=== PATIENT | male | born 1990 | race Caucasian/White ===

== ENCOUNTER 2017-02-23 21:10 | Emergency (ER) | payer SELFPAY ==
[~2017-02-23] VITALS: Ht 188 cm; Wt 71.4 kg
[2017-02-23 21:34] VITALS: BP 121/71; PULSE 81; RESP 16; TEMP 98.6; O2SAT 98
--- NOTE | 2017-02-23 23:01 | PD ---
HPI Chief Complaint: Chest Pain Time Seen by Provider: 22:47 Travel History International Travel<30 days: No Contact w/Intl Traveler<30days: No Traveled to known affect area: No History of Present Illness HPI 26 years old male complains of right-sided neck pain, right shoulder pain, right anterior chest wall pain. Patient states that he has intermittent Pressure pain on the right-sided neck and feel like the right-sided neck swollen. Patient states that he has intermittent sharp shooting pain on the right chest and occasionally pressure pain on the right chest. Patient states the symptoms started 4 weeks ago and has been intermittent since then. Patient was seen at local walk-in clinic and had chest x-ray done. Patient was Diagnosed with costochondritis. Patient was given prescription for ibuprofen for pain. Patient states that the pain occasionally radiates that the right shoulder. Patient denies any headache. Patient denies any vision change. Patient denies any recent injury. Patient denies any shortness of breath. Patient denies abdominal pain. Patient denies any focal weakness or numbness of extremity. Patient denies any history of CAD. Patient denies any history of alcohol or illicit drug abuse. Patient is a smoker. Patient denies any history hypertension, diabetes, hyperlipidemia. On a scale of 1-10 the pain is a 5. PFSH Past Medical History Musculoskeletal: Yes (COSTOCHONDRITIS) Tetanus Vaccination: > 5 Years Influenza Vaccination: No Past Surgical History Surgical History: No Previous Surgery Social History Alcohol Use: Yes ("MAYBE ONCE A MONTH" STATED 02/23/17) Tobacco Use: Yes (1 PPD) Substance Use: No Allergies-Medications (Allergen,Severity, Reaction): Coded Allergies: No Known Allergies (Unverified , 02/23/17) Reported Meds & Prescriptions Reported Meds & Active Scripts Active Reported Turmeric Complex 500 mg Cap (Turmeric/Turmeric Ext/Pepr Ext) 1 Each Capsule 1 Cap PO BID Review of Systems General / Constitutional: No: Fever Eyes: No: Visual changes HENT: Positive: Neck Pain, No: Headaches Cardiovascular: Positive: Chest Pain or Discomfort Respiratory: No: Shortness of Breath Gastrointestinal: No: Abdominal Pain Genitourinary: No: Dysuria Musculoskeletal: No: Pain Skin: No Rash Neurologic: No: Weakness Psychiatric: No: Depression Endocrine: No: Polydipsia Hematologic/Lymphatic: No: Easy Bruising Physical Exam Narrative GENERAL: Well-nourished, well-developed patient. SKIN: Focused skin assessment warm/dry. HEAD: Normocephalic. EYES: No scleral icterus. No injection or drainage. NECK: Supple, trachea midline. No JVD or lymphadenopathy. CARDIOVASCULAR: Regular rate and rhythm without murmurs, gallops, or rubs. RESPIRATORY: Breath sounds equal bilaterally. No accessory muscle use. GASTROINTESTINAL: Abdomen soft, non-tender, nondistended. MUSCULOSKELETAL: No cyanosis, or edema. BACK: Nontender without obvious deformity. No CVA tenderness. Neurologic exam: Patient's awake and alert oriented 3. No obvious focal neurological deficit. Data Data Last Documented VS Vital Signs Date Time Temp Pulse Resp B/P Pulse Ox O2 Delivery O2 Flow Rate FiO2 02/24/17 00:10 61 16 116/67 98 Room Air 02/23/17 21:34 98.6 Orders Electrocardiogram (02/23/17 22:53) Complete Blood Count With Diff (02/23/17 22:53) Basic Metabolic Panel (Bmp) (02/23/17 22:53) Creatine Kinase (Cpk) (02/23/17 22:53) Troponin I (02/23/17 22:53) Prothrombin Time / Inr (Pt) (02/23/17 22:53) Act Partial Throm Time (Ptt) (02/23/17 22:53) Chest, Single Ap (02/23/17 22:53) Iv Access Insert/Monitor (02/23/17 22:53) Ecg Monitoring (02/23/17 22:53) Oximetry (02/23/17 22:53) Cta Neck W Iv Contrast W 3d (02/23/17 ) Iohexol 350 Inj (Omnipaque 350 Inj) (02/23/17 23:52) Labs Laboratory Tests Test 02/23/17 23:00 White Blood Count 8.3 TH/MM3 Red Blood Count 4.35 MIL/MM3 Hemoglobin 14.2 GM/DL Hematocrit 41.6 % Mean Corpuscular Volume 95.7 FL Mean Corpuscular Hemoglobin 32.7 PG Mean Corpuscular Hemoglobin 34.2 % Concent Red Cell Distribution Width 12.1 % Platelet Count 135 TH/MM3 Mean Platelet Volume 8.6 FL Neutrophils (%) (Auto) 50.3 % Lymphocytes (%) (Auto) 30.4 % Monocytes (%) (Auto) 7.9 % Eosinophils (%) (Auto) 8.9 % Basophils (%) (Auto) 2.5 % Neutrophils # (Auto) 4.2 TH/MM3 Lymphocytes # (Auto) 2.5 TH/MM3 Monocytes # (Auto) 0.7 TH/MM3 Eosinophils # (Auto) 0.7 TH/MM3 Basophils # (Auto) 0.2 TH/MM3 CBC Comment DIFF FINAL Differential Comment Prothrombin Time 11.3 SEC Prothromb Time International 1.0 RATIO Ratio Activated Partial 27.8 SEC Thromboplast Time Sodium Level 142 MEQ/L Potassium Level 3.9 MEQ/L Chloride Level 107 MEQ/L Carbon Dioxide Level 27.0 MEQ/L Anion Gap 8 MEQ/L Blood Urea Nitrogen 15 MG/DL Creatinine 1.00 MG/DL Estimat Glomerular Filtration 90 ML/MIN Rate Random Glucose 90 MG/DL Calcium Level 8.8 MG/DL Total Creatine Kinase 85 U/L Troponin I LESS THAN 0.02 NG/ML MDM Medical Decision Making Medical Screen Exam Complete: Yes Emergency Medical Condition: Yes Interpretation(s) Last Impressions Chest X-Ray 02/23/17 0900 Signed Impressions: Service Date/Time: Thursday, February 23, 2017 23:26 - CONCLUSION: No acute cardiopulmonary abnormality is identified. Andre Pinto MD 23:54 PM. CBC within normal limit. Platelet count 135. CMP within normal limit. Cardiac enzymes normal. 12:34 AM. CTA neck normal. Differential Diagnosis Differential diagnosis including radiculopathy, neuralgia, muscle spasm, vascular insufficiency, pneumothorax, PE. Narrative Course 26 years old male complains of right-sided neck pain, right-sided chest wall pain, right shoulder pain. Diagnosis Primary Impression: Atypical chest pain Additional Impression: Neuralgia Patient Instructions: General Instructions Additional Instructions: Take medications as needed for pain. Follow-up with personal physician. Return if worse. Med/Other Pt SpecificInfo: Prescription(s) given Scripts Methocarbamol (Robaxin)750 Mg [id number] Mg PO QID #40 TAB Prov:Gama Lundberg MD 02/24/17 Meloxicam (Mobic)15 Mg Tab15 Mg PO DAILY #20 TAB Prov:Gama Lundberg MD 02/24/17 Disposition: 01 DISCHARGE HOME Condition: Stable Gama Lundberg MD Feb 23, 2017 23:01
[2017-02-23 23:16] LABS: AUTOMATED NEUTROPHIL # 4.2 TH/MM3 (1.8-7.7); BASOPHIL # 0.2 TH/MM3 (0-0.2); BASOPHIL % 2.5 % (0.0-2.0); EOSINOPHIL # 0.7 TH/MM3 (0-0.4); EOSINOPHIL % 8.9 % (0.0-4.0); HEMATOCRIT 41.6 % (39.0-51.0); HEMO FLAGS DIFF FINAL; LYMPH % 30.4 % (9.0-44.0); LYMPHOCYTE # 2.5 TH/MM3 (1.0-4.8); MEAN CELL VOLUME 95.7 FL (80.0-100.0); MEAN CORPUSCULAR HEMOGLOBIN 32.7 PG (27.0-34.0); MEAN CORPUSCULAR HGB CONC 34.2 % (32.0-36.0); MONO % 7.9 % (0.0-8.0); NEUT % 50.3 % (16.0-70.0); PLATELET COUNT 135 TH/MM3 (150-450); RED BLOOD COUNT 4.35 MIL/MM3 (4.50-5.90); RED CELL DISTRIBUTION WIDTH 12.1 % (11.6-17.2); WHITE BLOOD COUNT 8.3 TH/MM3 (4.0-11.0)
[2017-02-23 23:26] LABS: CHLORIDE 107 MEQ/L (98-107); POTASSIUM 3.9 MEQ/L (3.5-5.1); SODIUM (NA) 142 MEQ/L (136-145)
[2017-02-23 23:29] LABS: ANION GAP 8 MEQ/L (5-15); BLOOD UREA NITROGEN 15 MG/DL (7-18)
[2017-02-23 23:31] LABS: APTT (PATIENT) 27.8 SEC (24.3-30.1); PROTHROMBIN TIME - PATIENT 11.3 SEC (9.8-11.6)
[2017-02-23 23:32] LABS: GLOMERULAR FILTRATION RATE 90 ML/MIN (>89)
--- NOTE | 2017-02-23 23:39 | RADRPT ---
EXAM DATE/TIME: 02/23/2017 23:26 [facility] COMPARISON: No previous studies available for comparison. INDICATIONS : Right upper chest pain for 4 weeks MEDICAL HISTORY : None. SURGICAL HISTORY : None. ENCOUNTER: Initial ACUITY: 1 month PAIN SCORE: 5/10 LOCATION: Right upper chest FINDINGS: Portable AP view of the chest demonstrates a normal-sized cardiac silhouette. No effusion, consolidat ion, or pneumothorax is visualized. The bones and soft tissues demonstrate no acute abnormality. CONCLUSION: No acute cardiopulmonary abnormality is identified. Andre Pinto MD on February 23, 2017 at 23:36 Board Certified Radiologist. This report was verified electronically.
[2017-02-23 23:42] LABS: CREATINE KINASE 85 U/L (39-308)
[2017-02-23] MEDS ORDERED: IOHEXOL 350 MG/ML 10 ML VIAL (for RAD DIAG) IV ONE (23:52)
[2017-02-24 00:10] VITALS: BP 116/67; PULSE 61; RESP 16; O2SAT 98
[2017-02-24] MEDS ORDERED: TURM1CAP6 PO (00:13)
--- NOTE | 2017-02-24 00:29 | RADRPT ---
EXAM DATE/TIME: 02/23/2017 23:36 [facility] COMPARISON: No previous studies available for comparison. INDICATIONS : Right sided neck and chest pressure. IV CONTRAST: 75 cc Omnipaque 350 (iohexol) IV RADIATION DOSE: 12.64 CTDIvol (mGy) MEDICAL HISTORY : None SURGICAL HISTORY : None. ENCOUNTER: Initial ACUITY: 1 day PAIN SCALE: 5/10 LOCATION: Right neck Elevated flow velocities and ICA/CCA ratios have been found to correlate with increased degrees of vessel stenosis, calculated as percentage of diameter relative to a normal segment of distal ICA/CCA. TECHNIQUE: Volumetric scanning was performed using a multirow detector CT scanner. The data was post processed with a variety of visualization algorithms including full-volume maximum intensity projection, multip lanar sliding thin-slab reformation, curved-planar reformation, and surface-rendering techniques. Us ing automated exposure control and adjustment of the mA and/or kV according to patient size, radiatio n dose was kept as low as reasonably achievable to obtain optimal diagnostic quality images. DICOM f ormat image data is available electronically for review and comparison. FINDINGS: AORTIC ARCH: There is a three-vessel origin of the great vessels from the aorta. No evidence of ostial narrowing. RIGHT CAROTID: The common carotid artery is within normal limits. The carotid bulb has a normal configuration withou t ulceration or narrowing. The internal carotid artery lumen is smooth without stenosis. The externa l carotid artery is within normal limits. LEFT CAROTID: The common carotid artery is within normal limits. The carotid bulb has a normal configuration withou t ulceration or narrowing. The internal carotid artery lumen is smooth without stenosis. The externa l carotid artery is within normal limits. VERTEBRALS: The vertebral arteries have a symmetric diameter. No stenotic lesions are seen. CONCLUSION: Normal examination of the neck arterial vasculature. Andre Pinto MD on February 24, 2017 at 0:25 Board Certified Radiologist. This report was verified electronically.
[2017-02-24] MEDS ORDERED: MOBI15TA PO (00:36)
[2017-02-24] MEDS ORDERED: ROBA750T PO (00:36)
--- NOTE | 2017-02-24 12:48 | EKG ---
Date Performed: 02/23/2017 Time Performed: 23:07:38 PTAGE: 26 years EKG: Sinus rhythm ST ELEVATION, PROBABLY EARLY REPOLARIZATION BORDERLINE ECG NO PREVIOUS TRACING DOCTOR: Aly Spangler Interpretating Date/Time 02/24/2017 12:44:57
== END 2017-02-24 00:50 | disposition home or self-care (01) ==
LOC: PHED 21:10
DX: R07.89 Other chest pain (principal); M79.2 Neuralgia and neuritis, unspecified; M54.2 Cervicalgia; M25.511 Pain in right shoulder; F17.200 Nicotine dependence, unspecified, uncomplicated
CPT/HCPCS: 70498; 71010; 80048; 82550; 84484; 85025; 85610; 85730; 93005; 99285; Q9967

== ENCOUNTER 2017-04-04 12:21 | Emergency (ER) | payer SELFPAY ==
[~2017-04-04 12:21] MED LIST: MOBI15TA PO; ROBA750T PO; TURM1CAP6 PO
[2017-04-04] MEDS ORDERED: IOHEXOL 350 MG/ML 10 ML VIAL (for RAD DIAG) IVCONTRAST ONE (12:22)
[2017-04-04 12:27] VITALS: BP 119/73; PULSE 72; RESP 18; TEMP 98.2; O2SAT 98
[2017-04-04] MEDS ORDERED: SODIUM CHLOR 0.9% 1000 ML INJ 1,000 ML IV SCH (12:54)
[2017-04-04] MEDS ORDERED: SODIUM CHLORIDE 0.9% FLUSH 10 ML FLUSH IV FLUSH PRN (13:00)
[2017-04-04] MEDS ORDERED: ONDANSETRON HCL 4 MG/2 ML VIAL IVP ONE (13:00)
--- NOTE | 2017-04-04 13:12 | PD ---
HPI Chief Complaint: Abdominal Pain Time Seen by Provider: 13:10 Travel History International Travel<30 days: No Contact w/Intl Traveler<30days: No Traveled to known affect area: No History of Present Illness HPI 27-year-old male patient presents to the ER today for 3 days history of left upper quadrant abdominal pain which he currently states is a 5-6 out of 10. He states he is also been having diarrhea. He denies any nausea, vomiting, fevers , or any other symptoms. He states that sometimes it gets better when he eats. Modifying Factors: None Associated Signs & Symptoms: Left upper quadrant abdominal pain Risk Factors: None PFSH Past Medical History Medical History: Denies Significant Hx Musculoskeletal: Yes (COSTOCHONDRITIS) Influenza Vaccination: No Past Surgical History Surgical History: No Previous Surgery Social History Alcohol Use: Yes ("MAYBE ONCE A MONTH" STATED 02/23/17) Tobacco Use: Yes (1 PPD) Substance Use: No Allergies-Medications (Allergen,Severity, Reaction): Coded Allergies: No Known Allergies (Unverified , 04/04/17) Reported Meds & Prescriptions Reported Meds & Active Scripts Active Review of Systems Except as stated in HPI: all other systems reviewed are Neg Physical Exam Narrative GENERAL: Well-developed young nail patient currently in mild distress. Awake and oriented 3. SKIN: Focused skin assessment warm/dry. HEAD: Atraumatic. Normocephalic. EYES: Pupils equal and round. No scleral icterus. No injection or drainage. ENT: No nasal bleeding or discharge. Mucous membranes pink and moist. NECK: Trachea midline. No JVD. CARDIOVASCULAR: Regular rate and rhythm. No murmur appreciated. RESPIRATORY: No accessory muscle use. Clear to auscultation. Breath sounds equal bilaterally. GASTROINTESTINAL: Abdomen soft, mild left upper quadrant tenderness without guarding or rebound, nondistended. Hepatic and splenic margins not palpable. MUSCULOSKELETAL: No obvious deformities. No clubbing. No cyanosis. No edema. NEUROLOGICAL: Awake and alert. No obvious cranial nerve deficits. Motor grossly within normal limits. Normal speech. PSYCHIATRIC: Appropriate mood and affect; insight and judgment normal. Data Data Last Documented VS Vital Signs Date Time Temp Pulse Resp B/P (MAP) Pulse Ox O2 Delivery O2 Flow Rate FiO2 04/04/17 14:20 60 16 115/68 (84) 100 Room Air 04/04/17 12:27 98.2 Orders Orders Complete Blood Count With Diff (04/04/17 12:54) Comprehensive Metabolic Panel (04/04/17 12:54) Lipase (04/04/17 12:54) Iv Access Insert/Monitor (04/04/17 12:54) Ecg Monitoring (04/04/17 12:54) Oximetry (04/04/17 12:54) Ondansetron Inj (Zofran Inj) (04/04/17 13:00) Sodium Chlor 0.9% 1000 Ml Inj (Ns 1000 M (04/04/17 12:54) Sodium Chloride 0.9% Flush (Ns Flush) (04/04/17 13:00) Ct Abd/Pel W Iv Contrast(Rout) (04/04/17 13:51) Iohexol 350 Inj (Omnipaque 350 Inj) (04/04/17 12:22) Labs Laboratory Tests Test 04/04/17 13:28 White Blood Count 5.9 TH/MM3 Red Blood Count 4.72 MIL/MM3 Hemoglobin 15.3 GM/DL Hematocrit 45.0 % Mean Corpuscular Volume 95.3 FL Mean Corpuscular Hemoglobin 32.3 PG Mean Corpuscular Hemoglobin Concent 34.0 % Red Cell Distribution Width 12.7 % Platelet Count 176 TH/MM3 Mean Platelet Volume 8.5 FL Neutrophils (%) (Auto) 53.9 % Lymphocytes (%) (Auto) 27.3 % Monocytes (%) (Auto) 7.2 % Eosinophils (%) (Auto) 9.9 % Basophils (%) (Auto) 1.7 % Neutrophils # (Auto) 3.2 TH/MM3 Lymphocytes # (Auto) 1.6 TH/MM3 Monocytes # (Auto) 0.4 TH/MM3 Eosinophils # (Auto) 0.6 TH/MM3 Basophils # (Auto) 0.1 TH/MM3 CBC Comment DIFF FINAL Differential Comment Blood Urea Nitrogen 16 MG/DL Creatinine 1.00 MG/DL Random Glucose 91 MG/DL Total Protein 7.4 GM/DL Albumin 4.0 GM/DL Calcium Level 9.1 MG/DL Alkaline Phosphatase 40 U/L Aspartate Amino Transf (AST/SGOT) 30 U/L Alanine Aminotransferase (ALT/SGPT) 13 U/L Total Bilirubin 0.6 MG/DL Sodium Level 138 MEQ/L Potassium Level 4.5 MEQ/L Chloride Level 104 MEQ/L Carbon Dioxide Level 27.2 MEQ/L Anion Gap 7 MEQ/L Estimat Glomerular Filtration Rate 90 ML/MIN Lipase 56 U/L MDM Medical Decision Making Medical Screen Exam Complete: Yes Emergency Medical Condition: Yes Medical Record Reviewed: Yes Interpretation(s) Laboratory Tests Test 04/04/17 13:28 Eosinophils (%) (Auto) 9.9 % (0.0-4.0) Eosinophils # (Auto) 0.6 TH/MM3 (0-0.4) Alkaline Phosphatase 40 U/L (45-117) Lipase 56 U/L (73-393) Last 24 hours Impressions Abdomen/Pelvis CT 04/04/17 1351 Signed Impressions: Service Date/Time: Tuesday, April 04, 2017 15:05 - CONCLUSION: Negative, I do not see an etiology for the patient's abdominal pain. German Yarbrough MD FACR Differential Diagnosis Left upper quadrant abdominal pains/diarrhea: gastritis versus gastric ulcer versus gastroenteritis versus pancreatitis Narrative Course Lab work and CAT scan did not show any signs of acute processes. Symptoms are more indicative of gastritis or gastroenteritis. At this point, patient's vital signs are stable in the ER and he had been given IV fluids and Zofran, did not have any further issues. My plan would be to release him with symptomatic relief and follow-up to primary care doctor. Return for any worsening in symptoms as necessary. The plan has discussed with him and he states understanding. Diagnosis Primary Impression: Gastroenteritis Med/Other Pt SpecificInfo: Prescription(s) given Scripts Famotidine (Pepcid) 20 Mg Tab 20 MG PO BID, #14 TAB 0 Refills Prov: Francine Singh MD 04/04/17 Disposition: 01 DISCHARGE HOME Condition: Stable Francine Singh MD Apr 04, 2017 13:12
[2017-04-04 13:35] LABS: AUTOMATED NEUTROPHIL # 3.2 TH/MM3 (1.8-7.7); BASOPHIL # 0.1 TH/MM3 (0-0.2); BASOPHIL % 1.7 % (0.0-2.0); EOSINOPHIL # 0.6 TH/MM3 (0-0.4); EOSINOPHIL % 9.9 % (0.0-4.0); HEMO FLAGS DIFF FINAL; LYMPH % 27.3 % (9.0-44.0); LYMPHOCYTE # 1.6 TH/MM3 (1.0-4.8); MEAN CELL VOLUME 95.3 FL (80.0-100.0); MEAN CORPUSCULAR HEMOGLOBIN 32.3 PG (27.0-34.0); MONO % 7.2 % (0.0-8.0); NEUT % 53.9 % (16.0-70.0); PLATELET COUNT 176 TH/MM3 (150-450); RED BLOOD COUNT 4.72 MIL/MM3 (4.50-5.90); RED CELL DISTRIBUTION WIDTH 12.7 % (11.6-17.2); WHITE BLOOD COUNT 5.9 TH/MM3 (4.0-11.0)
[2017-04-04 13:43] LABS: CHLORIDE 104 MEQ/L (98-107); SODIUM (NA) 138 MEQ/L (136-145)
[2017-04-04 13:47] LABS: ANION GAP 7 MEQ/L (5-15); BICARBONATE 27.2 MEQ/L (21.0-32.0); BLOOD UREA NITROGEN 16 MG/DL (7-18)
[2017-04-04 13:49] LABS: ALT (GPT) 13 U/L (12-78); AST (GOT) 30 U/L (15-37); GLOMERULAR FILTRATION RATE 90 ML/MIN (>89)
[2017-04-04 13:51] LABS: TOTAL BILIRUBIN ADULT 0.6 MG/DL (0.2-1.0)
[2017-04-04 13:52] LABS: ALKALINE PHOSPHATASE 40 U/L (45-117)
[2017-04-04 14:05] LABS: POTASSIUM 4.5 MEQ/L (3.5-5.1)
[2017-04-04 14:16] VITALS: RESP 16; O2SAT 99
[2017-04-04 14:20] VITALS: BP 115/68; PULSE 60; RESP 16; O2SAT 100
--- NOTE | 2017-04-04 15:30 | RADRPT ---
EXAM DATE/TIME: 04/04/2017 15:05 [facility] COMPARISON: No previous studies available for comparison. INDICATIONS : Left lower abdomen pain for two weeks. IV CONTRAST: 71 cc Omnipaque 350 (iohexol) IV ORAL CONTRAST: No oral contrast ingested. RADIATION DOSE: 5.23 CTDIvol (mGy) MEDICAL HISTORY : None SURGICAL HISTORY : None. ENCOUNTER: Initial ACUITY: 2 weeks PAIN SCALE: 6/10 LOCATION: Left lower quadrant TECHNIQUE: Volumetric scanning of the abdomen and pelvis was performed. Using automated exposure control and ad justment of the mA and/or kV according to patient size, radiation dose was kept as low as reasonably achievable to obtain optimal diagnostic quality images. DICOM format image data is available electro nically for review and comparison. FINDINGS: LOWER LUNGS: The visualized lower lungs are clear. LIVER: Homogeneous density without lesion. There is no dilation of the biliary tree. No calcified gallston es. SPLEEN: Normal size without lesion. PANCREAS: Within normal limits. ADRENAL GLANDS: Within normal limits. RIGHT KIDNEY: Normal in size and shape. There is no mass, stone, or hydronephrosis. LEFT KIDNEY: Normal in size and shape. There is no mass, stone, or hydronephrosis.. VASCULAR: There is no aortic aneurysm. BOWEL/MESENTERY: The stomach, small bowel, and colon demonstrate no acute abnormality. There is no free intraperitone al air or fluid. RETROPERITONEUM: There is no lymphadenopathy. PELVIC CONTENTS: Bladder, are unremarkable ABDOMINAL WALL: Within normal limits. INGUINAL: There is no lymphadenopathy or hernia. MUSCULOSKELETAL: Within normal limits for patient age. CONCLUSION: Negative, I do not see an etiology for the patient's abdominal pain. German Yarbrough MD FACR on April 04, 2017 at 15:27 Board Certified Radiologist. This report was verified electronically.
[2017-04-04 15:54] VITALS: BP 116/70; PULSE 62; RESP 16; O2SAT 100
[2017-04-04] MEDS ORDERED: FAMO1TAB37 PO (15:55)
== END 2017-04-04 16:02 | disposition home or self-care (01) ==
LOC: PHED 12:21
DX: K52.9 Noninfective gastroenteritis and colitis, unspecified (principal); F17.200 Nicotine dependence, unspecified, uncomplicated; Z87.39 Personal history of other diseases of the musculoskeletal system and connective tissue
CPT/HCPCS: 74177; 80053; 83690; 85025; 96360; 99285; J7030; Q9967